=== PATIENT | male | born 1970 | race Caucasian/White ===

== ENCOUNTER 2016-08-03 07:42 | Day surgery (SDC) | payer OTHER ==
--- NOTE | ~2016-08-03 | EGD ---
EGD REPORT [facility] [address] [place]. [address] NAME: LOGAN SWEENEY : [birth year] STATUS : REG [facility] [place] PAT#: [id number] AGE: 45 ADM/REG DATE : 08/03/16 MR#: [id number] REPORT SERV DATE: 08/03/16 DICTATED BY: SERGEI NGUYEN DATE: 08/03/16 REPORT STATUS : Draft TRANSCRIBED BY: [facility] DATE: 08/03/16 Endoscopy Center Patient Name: Logan Sweeney Date of : 1970 Attending MD: SERGEI NGUYEN MD Procedure Date No Time: 08/03/2016 Procedure: Colonoscopy Indications: High risk colon cancer surveillance: Personal history of colonic polyps Referring MD: Mirtha Bermeo Medicines: as per anesthesia Complications: No immediate complications. Procedure: Pre-Anesthesia Assessment: - ASA Grade Assessment: II - A patient with mild systemic disease. After I obtained informed consent, the scope was passed under direct vision. Throughout the procedure, the patient's blood pressure, pulse, and oxygen saturations were monitored continuously. The PCF [id number] was introduced through the anus and advanced to the cecum, identified by appendiceal orifice and ileocecal valve. The colonoscopy was performed without difficulty. The patient tolerated the procedure. The quality of the bowel preparation was adequate to identify polyps. Findings: The perianal and digital rectal examinations were normal. A few small and large-mouthed diverticula were found in the sigmoid colon. Internal hemorrhoids were found during endoscopy and were mild. Impression: - Diverticulosis in the sigmoid colon. - Internal hemorrhoids. Recommendation: - Repeat colonoscopy in 5 years for surveillance. Procedure Code(s): --- Professional --- 15876, Colonoscopy, flexible, proximal to splenic flexure; diagnostic, with or without collection of specimen(s) by brushing or washing, with or without colon decompression (separate procedure) Diagnosis Code(s): --- Professional --- K64.8, Other hemorrhoids K57.30, Diverticulosis of large intestine without EGD REPORT [address] [place]. [address] NAME: LOGAN SWEENEY : [birth year] STATUS : [place] [facility] [place] PAT#: [id number] AGE: 45 ADM/REG DATE : 08/03/16 MR#: [id number] REPORT SERV DATE: 08/03/16 DICTATED BY: SERGEI NGUYEN. DATE: 08/03/16 REPORT STATUS : Draft TRANSCRIBED BY: [employer] DATE: 08/03/16 perforation or abscess without bleeding Z86.010, Personal history of colonic polyps CPT copyright 2013 [employer]. All rights reserved. The codes documented in this report are preliminary and upon medical biller coder review may be revised to meet current compliance requirements. SERGEI NGUYEN MD 08/03/2016 10:27 AM This report has been signed electronically. Number of Addenda: 0 Note Initiated On: 08/03/2016 10:10 AM Scope Withdrawal Time 0 hours 6 minutes [address] [place] [address] [place] [address]
--- NOTE | ~2016-08-03 | EGD ---
EGD REPORT [facility] [address] [place] [address] NAME: LOAGN SWEENEY : [birth year] [place] [facility] [place] [id number] AGE: 45 ADM/REG DATE : 08/03/16 MR#: [id number] REPORT SERV DATE: 08/03/16 DICTATED BY: SERGEI NGUYEN DATE: 08/03/16 REPORT STATUS : Draft [facility]ANSCRIBED BY: [facility] DATE: 08/03/16 Endoscopy Center Patient Name: Logan Sweeney Date of : 1970 Attending MD: SERGEI NGUYEN MD Procedure Date No Time: 08/03/2016 Procedure: Upper GI endoscopy Indications: Heartburn, Suspected esophageal reflux Referring MD: Mirtha Bermeo Medicines: as per anesthesia Complications: No immediate complications. Procedure: Pre-Anesthesia Assessment: - ASA Grade Assessment: II - A patient with mild systemic disease. After obtaining informed consent, the endoscope was passed under direct vision. Throughout the procedure, the patient's blood pressure, pulse, and oxygen saturations were monitored continuously. The GIF [id number] was introduced through the mouth, and advanced to the third part of duodenum. The upper GI endoscopy was accomplished without difficulty. The patient tolerated the procedure. Findings: The examined esophagus was normal. The entire examined stomach was normal. The cardia and gastric fundus were normal on retroflexion. The examined duodenum was normal. Impression: - Normal esophagus. - Normal stomach. - Normal examined duodenum. Recommendation: - Follow an antireflux regimen. - Continue present medications. Procedure Code(s): --- Professional --- 24416, Esophagogastroduodenoscopy, flexible, transoral; diagnostic, including collection of specimen(s) by brushing or washing, when performed (separate procedure) Diagnosis Code(s): --- Professional --- R12, Heartburn EGD REPORT [facility] [address] [facility] [place]. [address] NAME: LOGAN SWEENEY : [birth year] [place]US : [place] [facility] [place] [id number] AGE: 45 ADM/REG DATE : 08/03/16 MR#: [id number] REPORT SERV DATE: 08/03/16 DICTATED BY: SERGEI NGUYEN. DATE: 08/03/16 REPORT STATUS : Draft TRANSCRIBED BY: [employer] DATE: 08/03/16 CPT copyright 2013 [employer]. All rights reserved. The codes documented in this report are preliminary and upon epic kaleidoscope analyst review may be revised to meet current compliance requirements. SERGEI NGUYEN MD 08/03/2016 10:12 AM This report has been signed electronically. Number of Addenda: 0 Note Initiated On: 08/03/2016 9:34 AM Scope Withdrawal Time 0 hours 0 minutes 0 seconds [address] [facility] [place] [address]
[~2016-08-03 07:42] MED LIST: FLONASE NAS; LEXAPRO10 PO; SYN112 PO; ZANTAC150 MG PO
== END 2016-08-03 23:59 | disposition home health service (06) ==
LOC: DMU 07:42
PROVIDERS: Internal Medicine Gastroenterology
PROC: 0DJD8ZZ Inspection of Lower Intestinal Tract, Via Natural or Artificial Opening Endoscopic (ICD-10-PCS; principal; 2016-08-03 09:00)
PROC: 0DJ08ZZ Inspection of Upper Intestinal Tract, Via Natural or Artificial Opening Endoscopic (ICD-10-PCS; 2016-08-03 09:00)
DX: Z12.11 Encounter for screening for malignant neoplasm of colon (principal); K64.8 Other hemorrhoids; K57.30 Diverticulosis of large intestine without perforation or abscess without bleeding; K21.9 Gastro-esophageal reflux disease without esophagitis; E03.9 Hypothyroidism, unspecified; G43.909 Migraine, unspecified, not intractable, without status migrainosus; F41.9 Anxiety disorder, unspecified; Z86.010 Personal history of colon polyps; Z88.8 Allergy status to other drugs, medicaments and biological substances; Z79.899 Other long term (current) drug therapy; Z98.890 Other specified postprocedural states